=== PATIENT | female | born 1965 | race Caucasian/White ===

== ENCOUNTER 2024-01-28 14:08 | Emergency (ER) | payer BC, SELFPAY ==
[2024-01-28 14:11] VITALS: BP 120/81
[2024-01-28 16:11] LABS: Urine Albumin Negative (Neg - Trace); Urine Bilirubin Negative (Negative); Urine Character Clear (Clear); Urine Color Straw; Urine Glucose Negative (Negative); Urine Ketone Negative (Negative); Urine Leukocyte Negative (Negative); Urine Nitrite Negative (Negative); Urine Occult Blood Negative (Negative); Urine Urobilinogen Negative (Neg - 1+)
[2024-01-28] MEDS: TYLENOL 1000 MG PO (16:41)
--- NOTE | 2024-01-28 17:09 | ED.GENMED ---
History of Present Illness
General
Chief Complaint: Back Pain
Source: patient
Exam Limitations: none
Time Seen by Provider: 01/28/24 15:34
Nursing documentation reviewed up to this point in time: agreed with
Travel History
Have you had any contact with someone who has COVID-19?: No
Do you have any symptoms of coronavirus? Fever > 100 degrees, chills, cough, shortness of breath, sore throat, loss of taste or smell, muscle aches, or headache?: No
History of Present Illness
History of Present Illness:
PT IS A 58 Y/O f WITH H/O mvp, GERD
here with low back pain
pt says that she woke up with a feeling of stiffness in her lower back and slightly to the right
it is nonradiating
she feels it most when she tries to extend and stand straight up
she feels like she cannot do that
no weakness, numbness, incontinience, fever, urinary sypmotms
she took tyenol this am and aleve this afternoon, despite her GERD
she took tums with it
never had issues with her back
cannot think of any activity that could have initiated this.
Review of Systems
Review of Systems
Allergies reviewed?: Yes
All Other Systems: Not applicable
Phy Exam
Physical Exam
Physical Exam:
GENERAL: Alert , in no apparent distress, comfortable at rest
HEAD: NCAT
NECK: no midline tenderness, active ROM intact, no paraspinal muscle tenderness;
CARDIAC: Regular rate and rhythm, no edema
LUNGS: Clear breath sounds bilaterally, no acute respiratory distress, no wheezes/rales/rhonchi
ABDOMEN: Soft, without focal tenderness, no r/g, no cvat, normal bowel sounds, nondistended
NEUROLOGICAL: Alert and oriented, no focal neuro deficits, CN intact, 5/5 strength, sensation intact, slow to ambulate
SKIN: Warm and dry,
Back: No midline tenderness, right sided paramuscle spasm lumbar around l2/l3
limited extension with some pain
flexio nintact
neg straight leg raise
PSYCH: Normal and appropriate interaction.
Course
Orders/Labs/Results
Orders:
Orders
01/28/24 16:01
Urinalysis Reflex To Culture Urgent
Date Specimen was Collected: 01/28/24
Time Specimen was Collected: 16:00
01/28/24 16:06
Acetaminophen [Tylenol] 1,000 mg PO NOW STA
Lumbar Spine Complete, 4 View [CR Lumbar Spine Comp Min 4 Vw*] Urgent
Comment:
Reason For Exam: lower back pain
Vital Signs
Initial and Last Documented VS:
Initial Vital Signs
Temp Pulse Resp BP Pulse Ox
97.5 F 64 18 120/81 98
01/28/24 14:11 01/28/24 14:11 01/28/24 14:11 01/28/24 14:11 01/28/24 14:11
Last Documented Vital Signs
Temp Pulse Resp BP Pulse Ox
97.5 F 54 16 111/67 97
01/28/24 14:11 01/28/24 17:10 01/28/24 17:10 01/28/24 17:10 01/28/24 17:10
MDM/Problems Addressed
Differential Diagnosis Includes:
lumbar strain, muscle spasm, compression fx
MDM/Problems Addressed:
58 y/o F with gerd, stomach ulcer
here with lower back pain atramtic
feels stiff, difficulty extending
no red flag symptoms
examines with tenderness and spasm tor ight lumbar region
no straight leg raise
normal sesnation and strength
cannot tlerate NSAIDS
screening xrays indep reviewed by me and neg
appreciate report
tylenol tid, lidocaine patch and valium offered for her stiffness
outpatient f/u.
*Critical Care Note
Total Time (30-74mins, 75-104mins- exclusive of procedures): Not Applicable
ED Attending Note
-
Portions of this chart may have been created with voice recognition software.� Occasional wrong word or��sound alike� substitutions may have occurred due to the inherent limitations of voice recognition software.
Discharge Plan
Departure
Patient Disposition: Home (Routine Discharge)
Date of Disposition: 01/28/24
Time of Disposition: 17:32
Patient with high blood pressure during this ER visit?: No
Covid-19: Not Applicable
Discharge Problem:
Lumbar paraspinal muscle spasm
Instructions: Low Back Pain (DC)
Prescriptions:
New
diazepam [Valium] 5 mg tablet
5 mg PO TID PRN (Reason: muscle spasm) Qty: 12 0RF
lidocaine 5 % adhesive patch,medicated
1 patch topical DAILY PRN (Reason: back pain) Qty: 15 0RF
No Action
omeprazole 20 mg Tablet,Delayed Release (Dr/Ec)
20 mg PO DAILY
oxycodone 5 mg Tablet
5 mg PO Q3HPRN PRN (Reason: mild pain) Qty: 30 0RF
Xarelto 10 mg Tablet
10 mg PO DAILY Qty: 30 0RF
Referrals:
Nanette Alberto CRNP [Family Provider] - Follow up in 2-3 days
Stand Alone Forms: Return to Work
Activity Restrictions/Additional Instructions:
You probably have some spasm in your paraspinal muscles of your lower back. Take Tylenol 3 times a day. For muscle spasm you can take 5 mg Valium up to 3 times a day as needed, this may make you sleepy. Apply heat off-and-on to your back. When
the heat is off you can try lidocaine patch 12 hours on, 12 hours off. Do not put heat or ice over the patch. Gently stretch. Follow-up with your family doctor, you may need more of a workup if this continues. Your x-rays did not show any
obvious acute findings. You may have had had some old injury to your Inferior sacrum region but this is not where your pain is. Return to the ER for any worsening symptoms like leg weakness, leg numbness, incontinence, fevers or chills, inability
to walk or any concerns
Interventions
Interventions:
*Risk Screen - Suicide Last Done: 01/28/24 14:11
*General Assessment Last Done: 01/28/24 14:11
*Neglect/Abuse Screening Last Done: 01/28/24 14:11
*ED COVID-19 Vaccine History Last Done: 01/28/24 14:11
*Nursing Disposition Last Done: 01/28/24 17:51
ED-Musculoskeletal Assessment Last Done: 01/28/24 16:00
Discharge Date and Time
Discharge Date/Time: 01/28/24 17:52
[2024-01-28 17:10] VITALS: BP 111/67
== END 2024-01-28 17:52 | disposition home or self-care (01) ==
LOC: EMR 14:08
PROVIDERS: Physician Assistant; EMERGENCY PHYSICIAN Emergency Medicine; FAMILY PHYSICIAN Nurse Practitioner Family
DX: M62.830 Muscle spasm of back (principal); X58.XXXA Exposure to other specified factors, initial encounter; K21.9 Gastro-esophageal reflux disease without esophagitis; I34.1 Nonrheumatic mitral (valve) prolapse
CPT/HCPCS: 99283; 72110; 81003

== ENCOUNTER → 2024-05-05 07:32 | Outpatient (REF) | payer OTHER, BC, SELFPAY | LOC: MRI 07:32 | PROVIDERS: ATTENDING PHYSICIAN Orthopaedic Surgery; FAMILY PHYSICIAN Nurse Practitioner Family | DX: M17.32 Unilateral post-traumatic osteoarthritis, left knee (principal); S72.492S Other fracture of lower end of left femur, sequela | CPT/HCPCS: 73721 ==

== ENCOUNTER → 2024-08-03 07:46 | Outpatient (REF) | payer BC, SELFPAY ==
[2024-08-03 09:05] LABS: % Basophils 0.7 % (0-2); % Eosinophils 0.7 % (0-6); % Lymphocytes 37.1 % (20.5-51.1); % Monocytes 9.2 % (1.7-9.3); % Neutrophils 52.3 % (42.2-75.2); Absolute Lymphocytes 1.5 10^3/uL (1.2-3.4); Absolute Monocytes 0.4 10^3/uL (0.1-0.6); Absolute Neutrophils 2.2 10^3/uL (1.4-6.5); Hematocrit 37.1 % (37.0-47.0); Hemoglobin 12.2 g/dL (12.0-16.0); Mean Corp Hgb Conc. 32.9 g/dL (33.0-37.0); Mean Corpuscular Hgb 31.3 pg (27.0-31.0); Mean Corpuscular Volume 95.1 fL (81.0-99.0); Nucleated Red Blood Cells % 0 %; Platelet Count 222 10^3/uL (130-400); Red Cell Dist. Width 13.7 % (11.5-14.5); White Blood Cell Count 4.1 10^3/uL (4.8-10.8)
[2024-08-03 10:27] LABS: ALT (SGPT) 21 U/L (0-35); AST (SGOT) 33 U/L (14-36); Albumin 4.7 g/dl (3.5-5.0); Alkaline Phosphatase 65 U/L (38-126); Blood Urea Nitrogen 10 mg/dl (7-17); Calcium 9.9 mg/dl (8.4-10.2); Carbon Dioxide 31 mmol/L (22-30); Chloride 100 mmol/L (98-107); Glucose 84 mg/dl (70-99); HDL Cholesterol 92 mg/dl; LDL Cholesterol, Calculated 125 mg/dl; Potassium 4.8 mmol/L (3.5-5.1); Sodium 142 mmol/L (135-145); Total Bilirubin 0.9 mg/dl (0.2-1.3); Total Cholesterol 232 mg/dl (50-199); Total Protein 7.3 g/dl (6.3-8.2); Triglyceride 76 mg/dl (10-149); Very Low Density Lipoprotein 15 mg/dl (0-30); eGFR > 60.00
== END ==
LOC: REG 07:46
DX: Z00.00 Encounter for general adult medical examination without abnormal findings (principal)
CPT/HCPCS: 36415; 80053; 80061; 85025